=== PATIENT | female | born 1985 | race Caucasian/White ===

== ENCOUNTER 2016-10-08 17:50 | Emergency (ER) | payer MEDICAID ==
[2016-10-08] MEDS ORDERED: CEPHALEXIN 500 MG CAPSULE ONE (18:55)
[2016-10-08] MEDS ORDERED: DIPHTH,PERTUSS(ACELL),TET VAC 0.5 ML VIAL IM V ONE (19:10)
== END 2016-10-08 19:24 | disposition home or self-care (01) ==
LOC: ED 17:50
DX: S61.012A Laceration without foreign body of left thumb without damage to nail, initial encounter (principal); Z23 Encounter for immunization; W25.XXXA Contact with sharp glass, initial encounter; Y92.009 Unspecified place in unspecified non-institutional (private) residence as the place of occurrence of the external cause
CPT/HCPCS: 90715; 90471; 99283 ×2; A9270